=== PATIENT | female | born 1975 | race Hispanic/Latino ===

== ENCOUNTER 2018-05-17 07:40 | Emergency (ER) | payer SELFPAY ==
[~2018-05-17] VITALS: Ht 165.1 cm; Wt 99.8 kg
[2018-05-17] MEDS ORDERED: ASPIRIN 81 MG CHEW TAB PO ONE (08:15)
[2018-05-17] MEDS ORDERED: ONDANSETRON HCL INJ 2 MG/ML VIAL IV STA (08:18)
[2018-05-17] MEDS ORDERED: NIFEDIPINE 10 MG CAP PO STA (08:18)
[2018-05-17] MEDS ORDERED: KETOROLAC TROMETHAMINE 30 MG/ML VIAL IV STA (08:18)
--- NOTE | 2018-05-17 08:33 | Diagnostic Imaging Report ---
PROCEDURE: CHEST SINGLE (PORTABLE) COMPARISON: None. INDICATIONS: ELEVATED BLOOD PRESSURE. HEADACHE FINDINGS: LUNGS: No consolidations or edema. PLEURA: No effusions or pneumothorax. HEART \T\ MEDIASTINUM: The heart is within normal size-limits. BONES \T\ SOFT TISSUES: No acute findings. CONCLUSION: No acute cardiopulmonary abnormality. Dictated by: Caio Gillette M.D. on 05/17/2018 at 8:38 Electronically approved by: Caio Gillette M.D. on 05/17/2018 at 8:38
[2018-05-17 08:35] LABS: BASOPHILS # (AUTO) 0.1 (0.0-0.1); BASOPHILS % 0.4 % (0.0-1.0); EOSINOPHILS # (AUTO) 0.1 (0.0-0.4); EOSINOPHILS % 0.8 % (0.0-6.0); HEMATOCRIT 36.3 % (34.2-44.1); HEMOGLOBIN 11.4 g/dL (12.0-16.0); LYMPHOCYTES # (AUTO) 2.3 (1.0-3.2); LYMPHOCYTES % 16.9 % (18.0-39.1); MEAN CORPUSCULAR HEMOGLOBIN 25.1 pg (28-32); MEAN CORPUSCULAR HGB CONC 31.4 g/dL (31-35); MONOCYTES # (AUTO) 0.8 (0.2-0.8); MONOCYTES % 5.6 % (4.4-11.3); NEUTROPHILS # (AUTO) 10.2 (2.1-6.9); NEUTROPHILS % 75.6 % (38.7-80.0); PLATELET COUNT 336 x10e3/uL (140-360); RED BLOOD COUNT 4.54 x10e6/uL (3.6-5.1); RED CELL DISTRIBUTION WIDTH 16.6 % (11.7-14.4)
--- NOTE | 2018-05-17 09:04 | Diagnostic Imaging Report ---
Examination: CT BRAIN WITHOUT CONTRAST History:Headache. Increased blood pressure confusion. Left upper extremity heaviness. Comparison studies:None Technique: Axial images were obtained from the skull base to the vertex. Coronal and sagittal images reconstructed from the axial data. Intravenous contrast: None Findings: Scalp: No abnormalities. Bones: No fractures, blastic or lytic lesions. Brain sulci: Appropriate for age. Ventricles: Normal in size and configuration. No hydrocephalus. Extra-axial space: No abnormalities. Parenchyma: No masses, hemorrhage, or acute or chronic cortical based vascular insults. Sellar/suprasellar region: No abnormalities. Craniocervical junction: Patent foramen magnum. No Chiari one malformation. Incidental findings: None. Impression: No intracranial abnormalities. Signed by: Dr. Mindi Knox M.D. on 05/17/2018 9:00 AM
[2018-05-17 09:05] LABS: INR 0.98; PROTHROMBIN TIME 12.2 seconds (11.9-14.5)
[2018-05-17 09:06] LABS: PARTIAL THROMBOPLASTIN TIME 32.9 seconds (23.8-35.5)
[2018-05-17 09:09] LABS: ALANINE AMINOTRANSFERASE 17 IU/L (0-55); ALBUMIN 3.6 g/dL (3.5-5.0); ALBUMIN/GLOBULIN RATIO 0.9 (0.8-2.0); ALKALINE PHOSPHATASE 109 IU/L (40-150); ANION GAP 15.3 mmol/L (8-16); BLOOD UREA NITROGEN 8 mg/dL (7-26); BUN/CREATININE RATIO 10 (6-25); CALCIUM 9.2 mg/dL (8.4-10.2); CARBON DIOXIDE 27 mmol/L (22-29); CHLORIDE 101 mmol/L (98-107); CREATINE KINASE 74 IU/L (29-168); CREATININE, SERUM 0.79 mg/dL (0.57-1.11); EST GLOMERULAR FILTRATION RATE > 60 ML/MIN (60-); GLUCOSE 159 mg/dL (74-118); POTASSIUM 3.3 mmol/L (3.5-5.1); SODIUM 140 mmol/L (136-145)
[2018-05-17 09:29] LABS: THYROID STIMULATING HORMONE 0.838 uIU/mL (0.350-4.940)
== END 2018-05-17 10:45 | disposition home or self-care (01) ==
LOC: ER 07:40
DX: I10 Essential (primary) hypertension (principal); R51 Headache; R53.83 Other fatigue; F32.9 Major depressive disorder, single episode, unspecified; Z91.14 Patient's other noncompliance with medication regimen
CPT/HCPCS: 36415; 70450; 71045; 80053; 82550; 82553; 83880; 84443; 84484; 85025; 85610; 85730; 93005; 99284; J1885; J2405

== ENCOUNTER 2018-07-08 13:43 | Emergency (ER) | payer SELFPAY ==
[~2018-07-08] VITALS: Ht 165.1 cm; Wt 99.8 kg
[2018-07-08] MEDS ORDERED: ONDANSETRON HCL INJ 2 MG/ML VIAL IV STA (14:10)
[2018-07-08] MEDS ORDERED: LABETALOL HCL 100 MG TAB PO ONE (14:15)
[2018-07-08] MEDS ORDERED: SODIUM CHLORIDE 0.9% 1000ML 1,000 ML IV SCH (14:15)
[2018-07-08] MEDS ORDERED: LABETALOL HCL 20 ML ONE (14:56)
[2018-07-08] MEDS ORDERED: MORPHINE SULFATE INJ 4 MG/ML INJ IV ONE (15:15)
[2018-07-08] MEDS ORDERED: LABETALOL HCL 5 MG/ML 20ML VIAL IV STA (15:28)
[2018-07-08] MEDS ORDERED: KETOROLAC TROMETHAMINE 30 MG/ML VIAL IV STA (16:24)
== END 2018-07-08 18:18 | disposition home or self-care (01) ==
LOC: ER 13:43
DX: I10 Essential (primary) hypertension (principal)
CPT/HCPCS: 99284; J1885; J2270; J2405; J3490; J7030